=== PATIENT | female | born 1990 | race Caucasian/White ===

== ENCOUNTER 2022-11-10 11:22 | Outpatient (CLI) | payer MEDICAID ==
[~2022-11-10] VITALS: Ht 152.4 cm; Wt 76.4 kg
[2022-11-10 11:52] LABS: BILIRUBIN,URINE NEGATIVE (NEGATIVE); CLARITY,URINE CLOUDY; COLOR,URINE YELLOW; GLUCOSE, URINE (UA) NEGATIVE (NEGATIVE); KETONES,URINE NEGATIVE (NEGATIVE); LEUKOCYTE ESTERASE ,URINE 3+ (NEGATIVE); NITRITE,URINE NEGATIVE (NEGATIVE); PH,URINE 6.5 (5-9); PROTEIN,URINE NEGATIVE (NEGATIVE)
[2022-11-10 11:55] VITALS: BP 98/52
[2022-11-10 11:58] LABS: BACTERIA,URINE MODERATE /HPF
[2022-11-10 12:00] VITALS: BP 105/61
[2022-11-10 12:05] VITALS: BP 110/70
[2022-11-10] MEDS ORDERED: ONDANSETRON 4 MG (ZOFRAN) ORAL DISSOLVE TAB PO ONE (12:15)
[2022-11-10] MEDS ORDERED: ONDA4TAB11 SL (12:16)
[2022-11-10] MEDS ORDERED: AMOX-355 PO (12:16)
--- NOTE | 2022-11-12 08:15 | Physician Query-Final Dx ---
Clinic Account Progress/Dx Physician Query: Please give diagnosis Please include # weeks gestation Date of Service Nov 10, 2022 at 11:22 FER,NovNov 12, 2022 08:15
== END 2022-11-10 12:27 | disposition home or self-care (01) ==
LOC: LDRP 11:22 → WSo 11:22
PROVIDERS: ATTEND Obstetrics & Gynecology
DX: Z34.93 Encounter for supervision of normal pregnancy, unspecified, third trimester (principal); Z3A.34 34 weeks gestation of pregnancy
CPT/HCPCS: 81000; 87088